=== PATIENT | male | born 1985 | race Caucasian/White ===

== ENCOUNTER → 2016-12-04 | Outpatient (CLI) | payer OTHER ==
--- NOTE | 2016-12-04 13:51 | MA ---
Bilateral Diagnostic Digital Mammogram with iCAD Clinical Indications: Palpable abnormality upper outer quadrant right breast. Patient on Adderall. St encarnacion family history of breast cancer. Technique: Bilateral CC and MLO routine views as well as additional spot CC and MLO views of the righ t breast. This examination was processed by the [facility] computer-aided detection system. Comparison: Ultrasound from today.. Breast Density: B. Findings: In the retroareolar and upper outer quadrant of the right breast there is asymmetric breast tissue in this male patient when compared to the left breast minimal retroareolar tissue. However no evidence of suspicious microcalcifications, architectural distortion, or dominant density. Impression: ACR BI-RADS 2: Benign bilateral mammogram. 1. Asymmetric right gynecomastia. 2. No suspicious findings in either breast. 3. Asymmetric right gynecomastia may be secondary to Adderall therapy. Recommendation: 1. Recommend genetic testing given the patient's strong family history of breast carcinoma 2. Consider surgical consult if clinically indicated. [facility] will send a result letter to the patient. Negative mammography should not preclude additional workup of a clinically suspicious finding. Findings and recommendations have been discussed with the patient who agrees with the plan.
--- NOTE | 2016-12-04 14:25 | US ---
Ultrasound right Breast History: Palpable abnormality in right breast upper outer quadrant. Patient on Adderall therapy. Fami ly history of breast carcinoma and breast cancer gene. Technique: Ultrasound imaging of the upper outer quadrant of the right breast from the 9 to the 12 o' clock position was performed by the payroll auditor and me. Findings: In the upper outer quadrant of the right breast especially at the 10 o'clock position, ther e is asymmetric breast tissue measuring approximately 4 x 1 cm which appears different than the left breast periareolar and upper outer quadrant region. However, no evidence of suspicious solid mass or cystic lesion. No focal hematoma. Impression: 1. BI-RADS 0: Needs further imaging. 2. Asymmetric breast tissue upper outer quadrant right breast correlating to the region of palpable c oncern probably representing asymmetric gynecomastia. 3. However, recommend bilateral mammograms to further evaluate the right upper outer quadrant palpabl e abnormality especially given the patient's family history of breast carcinoma gene. Please see mamm ogram report and recommendations. Findings and recommendations have been discussed with the patient who agrees with the plan.
== END ==
LOC: BRMIMAGING 09:23
PROVIDERS: ATTEND Physician Assistant Medical
DX: N63 Unspecified lump in breast (principal); Z80.3 Family history of malignant neoplasm of breast; Z79.899 Other long term (current) drug therapy
CPT/HCPCS: 76641-PO; G0204